=== PATIENT | female | born 1960 | race Caucasian/White ===

== ENCOUNTER 2023-10-14 15:07 | Emergency (ER) | payer OTHER ==
[~2023-10-14] VITALS: Ht 172.7 cm; Wt 90.7 kg
[2023-10-14 15:21] VITALS: BP 133/104; PULSE 99; RESP 19; TEMP 98.8; O2SAT 97
[2023-10-14] MEDS ORDERED: diphenhydrAMINE 50 MG/ML VIAL IVP ONE (15:40)
[2023-10-14] MEDS ORDERED: KETOROLAC 30 MG/ML VIAL IVP ONE (15:40)
[2023-10-14] MEDS ORDERED: NACL 0.9% 1,000 ML IV ONE (15:40)
[2023-10-14] MEDS ORDERED: PROCHLORPERAZINE 10 MG/2 ML VIAL IVP ONE (15:40)
[2023-10-14 16:12] LABS: BASOPHILS % (AUTO) 0.5 % (0.0-2.0); EOSINOPHILS % (AUTO) 0.2 % (0.0-4.0); HEMATOCRIT 42.6 % (36-48); HEMOGLOBIN 14.7 g/dL (12.0-16.0); LYMPHOCYTES # (AUTO) 1.1 K/uL (2.5-16.5); LYMPHOCYTES % (AUTO) 13.5 % (20.5-51.1); MEAN CORPUSCULAR HEMOGLOBIN 32 pg (27-31); MEAN CORPUSCULAR HGB CONC 35 g/dL (33-37); MEAN CORPUSCULAR VOLUME 92.2 fL (80-94); MONOCYTES # (AUTO) 1.4 K/uL (0.8-1.0); MONOCYTES % (AUTO) 16.7 % (1.7-9.3); NEUTROPHILS # (AUTO) 5.7 K/uL (1.8-7.7); NEUTROPHILS % (AUTO) 69.1 % (42.2-75.2); PLATELET COUNT (AUTO) 315 K/uL (140-450); RED BLOOD CELL COUNT(AUTO) 4.62 MIL/uL (4.20-5.40); RED CELL DISTRIBUTION WIDTH 13.6 % (11.6-13.7); WHITE BLOOD COUNT (AUTO) 8.2 K/uL (4.8-10.8)
[2023-10-14 16:31] LABS: ANION GAP 14.9 (8-16); CALCIUM 9.3 mg/dL (8.5-10.1); CARBON DIOXIDE 24.8 mmol/L (21-32); CREATININE 0.6 mg/dL (0.6-1.3); POTASSIUM 3.7 mmol/L (3.5-5.1)
[2023-10-14 16:37] LABS: ALBUMIN 3.6 g/dL (3.4-5.0); BILIRUBIN,DIRECT 0.1 mg/dL (0.0-0.3); TOTAL BILIRUBIN 0.6 mg/dL (0.0-1.0)
[2023-10-14 17:33] VITALS: BP 130/76; PULSE 89; RESP 20; TEMP 98.8; O2SAT 98
== END 2023-10-14 17:33 | disposition home or self-care (01) ==
LOC: MED 15:07
DX: G43.909 Migraine, unspecified, not intractable, without status migrainosus (principal); Z88.0 Allergy status to penicillin; Z79.899 Other long term (current) drug therapy
CPT/HCPCS: 36415; 70450; 80048; 80076; 85025; 96361; 96374; 96375; 99285; J0780; J1200; J1885; J7030